=== PATIENT | female | born 1990 | race Caucasian/White ===

== ENCOUNTER 2025-01-09 20:09 | Outpatient (CLI) | payer OTHER ==
[2025-01-09 20:41] VITALS: BP 104/74
[2025-01-09] MEDS ORDERED: BETAMETHASONE ACETATE,SOD PHOS 30 MG/5 ML ML ONE (21:10)
[2025-01-09] MEDS ORDERED: RINGERS SOLUTION,LACTATED 1,000 ML IV SCH (22:30)
[2025-01-09] MEDS ORDERED: BETAMETHASONE ACETATE,SOD PHOS 30 MG/5 ML ML IM ONE (22:30)
[2025-01-09] MEDS ORDERED: PRENATAL + DHA1 EAC1 PO (22:43)
[2025-01-09] MEDS ORDERED: VITAMIN C 500500 M1 PO (22:44)
[2025-01-09] MEDS ORDERED: VITAMIN D PO (22:45)
[2025-01-09 23:09] LABS: BASO % 0.5 % (0.1-1.2); EOS # 0.04 (0.04-0.54); EOS % 0.4 % (0.7-7.0); LYMPH # 2.07 (1.18-3.74); LYMPH % 22.7 % (19.3-53.1); MEAN PLATELET VOLUME 11.00 fl (9.4-12.4); MONO # 0.63 (0.24-0.82); MONO % 6.9 % (4.7-12.5); NEUT # 5.99 (1.56-6.13); NEUT % 65.7 % (34.0-71.1); RED CELL DISTRIBUTION WIDTH 12.7 % (11.6-14.4)
[2025-01-09 23:13] LABS: URINE APPEARANCE Cloudy; URINE BILIRRUBIN Negative (NEGATIVE); URINE BLOOD Negative; URINE COLOR Yellow; URINE GLUCOSE Negative (NEGATIVE); URINE KETONE Negative (NEGATIVE); URINE LEUKOCYTE Negative; URINE NITRATE Negative; URINE PROTEIN Negative (NEGATIVE); URINE UROBILINOGEN 0.2 E.U./dl
[2025-01-09 23:17] LABS: URINE BACTERIA 2174.2 uL (0.0-1933); URINE EPITHELIAL CELLS 119.5 uL (0.0-38.8); URINE RBC 6.8 uL (0.0-20.8); URINE WBC 15.0 uL (0.0-23.2)
[2025-01-09 23:24] LABS: URINE CAST 0.14 uL (0.0-1.40)
[2025-01-09 23:37] VITALS: BP 108/74
[2025-01-09 23:43] LABS: INR < 0.93
[2025-01-10 04:05] VITALS: BP 108/70
[2025-01-10 07:14] VITALS: BP 103/68; O2SAT 100
[2025-01-10 11:17] VITALS: BP 117/71; O2SAT 100
[2025-01-10 15:27] VITALS: BP 100/67; O2SAT 99
[2025-01-10 18:56] VITALS: BP 106/67
[2025-01-10] MEDS ORDERED: BETAMETHASONE ACETATE,SOD PHOS 30 MG/5 ML ML IM SCH ×2 (19:00→21:00)
[2025-01-10 19:05] VITALS: BP 106/67
== END 2025-01-10 19:42 | disposition home or self-care (01) ==
LOC: OBS/DEL 20:09
PROVIDERS: ATTEND Obstetrics & Gynecology
DX: O36.8330 Maternal care for abnormalities of the fetal heart rate or rhythm, third trimester, not applicable or unspecified (principal); O26.849 Uterine size-date discrepancy, unspecified trimester; O36.8130 Decreased fetal movements, third trimester, not applicable or unspecified; O36.5990 Maternal care for other known or suspected poor fetal growth, unspecified trimester, not applicable or unspecified; Z3A.34 34 weeks gestation of pregnancy

== ENCOUNTER 2025-02-05 09:58 | Inpatient (IN) | payer OTHER ==
[~2025-02-05] VITALS: Ht 157.5 cm; Wt 81.6 kg
[~2025-02-05 09:58] MED LIST: PRENATAL + DHA1 EAC1 PO; VITAMIN C 500500 M1 PO; VITAMIN D PO
[2025-02-05 10:00] VITALS: BP 102/69
[2025-02-05] MEDS ORDERED: RINGERS SOLUTION,LACTATED 1,000 ML IV SCH (11:00)
[2025-02-05 11:40] LABS: URINE APPEARANCE Cloudy; URINE BILIRRUBIN Negative (NEGATIVE); URINE BLOOD Negative; URINE COLOR Yellow; URINE GLUCOSE Negative (NEGATIVE); URINE KETONE Negative (NEGATIVE); URINE LEUKOCYTE Large; URINE NITRATE Negative; URINE PROTEIN Negative (NEGATIVE); URINE UROBILINOGEN 1.0 E.U./dl
[2025-02-05 11:42] LABS: BASO % 0.3 % (0.1-1.2); EOS # 0.03 (0.04-0.54); EOS % 0.3 % (0.7-7.0); LYMPH # 1.29 (1.18-3.74); LYMPH % 14.6 % (19.3-53.1); MEAN PLATELET VOLUME 11.00 fl (9.4-12.4); MONO # 0.56 (0.24-0.82); MONO % 6.3 % (4.7-12.5); NEUT # 6.79 (1.56-6.13); NEUT % 76.9 % (34.0-71.1); RED CELL DISTRIBUTION WIDTH 12.7 % (11.6-14.4)
[2025-02-05 11:45] LABS: URINE BACTERIA 6844.8 uL (0.0-1933); URINE EPITHELIAL CELLS 113.6 uL (0.0-38.8); URINE WBC 326.2 uL (0.0-23.2)
[2025-02-05] MEDS ORDERED: CHILDREN'S ASPI81 MG PO (11:58)
[2025-02-05 12:00] LABS: URINE CAST 0.14 uL (0.0-1.40); URINE RBC 1.0 uL (0.0-20.8)
[2025-02-05] MEDS ORDERED: CEFAZOLIN SODIUM 1,000 MG VIAL IV SCH (12:00)
[2025-02-05 12:03] LABS: INR < 0.93
[2025-02-05] MEDS ORDERED: OXYTOCIN 20 UNITS/500ML RL PIGGYBAG IV SCH (12:30)
[2025-02-05] MEDS ORDERED: OXYTOCIN 20 UNITS/500ML RL PIGGYBAG IV ONE (12:58)
[2025-02-05 15:43] VITALS: BP 132/81
[2025-02-05] MEDS ORDERED: MORPHINE SULFATE 4 MG/ML CARTRIDGE IV STA (17:04)
[2025-02-05] MEDS ORDERED: ERYTHROMYCIN BASE OPHT 1GM EACH TUBE OP ONE (17:59)
[2025-02-05] MEDS ORDERED: OXYTOCIN 20 UNITS/1000ML RL PIGGYBAG IV ONE (17:59)
[2025-02-05] MEDS ORDERED: LIDOCAINE HCL 1% 10ML VIAL ONE (18:00)
[2025-02-05] MEDS ORDERED: CHLORHEXIDINE GLUCONATE 120 ML BOTTLE TOP ONE (18:00)
[2025-02-05] MEDS ORDERED: ACETAMINOPHEN 500 MG GEL..CAP PO PRN (19:00)
[2025-02-05] MEDS ORDERED: CHLORHEXIDINE GLUCONATE 120 ML BOTTLE TOP SCH (19:00)
[2025-02-05] MEDS ORDERED: OXYTOCIN 1,000 ML IV SCH (19:00)
[2025-02-05 23:35] VITALS: BP 120/69
[2025-02-06 00:07] LABS: BASO % 0.1 % (0.1-1.2); EOS # 0.00 (0.04-0.54); EOS % 0.0 % (0.7-7.0); LYMPH # 1.05 (1.18-3.74); LYMPH % 5.1 % (19.3-53.1); MEAN PLATELET VOLUME 11.00 fl (9.4-12.4); MONO # 0.69 (0.24-0.82); MONO % 3.4 % (4.7-12.5); NEUT # 18.58 (1.56-6.13); NEUT % 90.5 % (34.0-71.1); RED CELL DISTRIBUTION WIDTH 12.5 % (11.6-14.4)
[2025-02-06 02:37] VITALS: BP 114/75
[2025-02-06] MEDS ORDERED: PNV,CALCIUM 72/IRON/FOLIC ACID 1 TAB TABLET PO SCH (09:00)
[2025-02-06 17:40] VITALS: BP 109/76
[2025-02-07 01:29] VITALS: BP 109/74
[2025-02-07 04:19] VITALS: BP 102/68
[2025-02-07 08:00] VITALS: BP 118/78
== END 2025-02-07 15:10 | disposition home or self-care (01) | DRG 807 ==
LOC: LDR 09:58 → OB/GYN 20:56
PROVIDERS: ADMIT Obstetrics & Gynecology; ATTEND Obstetrics & Gynecology
PROC: 10E0XZZ Delivery of Products of Conception, External Approach (ICD-10-PCS; principal; 2025-02-05)
PROC: 4A1HXCZ Monitoring of Products of Conception, Cardiac Rate, External Approach (ICD-10-PCS; 2025-02-05)
DX: O80 Encounter for full-term uncomplicated delivery (principal); Z37.0 Single live birth; Z3A.39 39 weeks gestation of pregnancy